=== PATIENT | male | born 1945 | race Caucasian/White ===

== ENCOUNTER 2018-04-30 22:48 | Emergency (ER) | payer OTHER ==
[~2018-04-30] VITALS: Ht 170.2 cm; Wt 80.1 kg
[2018-04-30 23:10] LABS: HEMATOCRIT 43.2 % (38.0-50.0); HEMOGLOBIN 14.8 G/DL (12.5-16.6); MCH 33.2 PG (29.0-34.0); MCHC 34.3 G/DL (30.0-36.0); MCV 96.9 FL (86-99); RBC DIS.WIDTH-CV 14.1 % (11.8-14.6); RBC DIS.WIDTH-SD 50.1 % (39-53); RED BLOOD COUNT 4.46 M/uL (4.00-5.50); WHITE BLOOD COUNT 10.7 K/uL (4.1-10.2)
[2018-04-30 23:25] LABS: CHLORIDE 106 mEq/L (99-109); POTASSIUM 3.8 mEq/L (3.7-5.4); SODIUM 140 mEq/L (136-147)
[2018-04-30 23:27] LABS: GLUCOSE 120 mg/dL (70-99)
[2018-04-30 23:31] LABS: CREATININE 1.3 mg/dL (0.6-1.3)
[2018-04-30 23:32] LABS: UREA NITROGEN (BUN) 15 mg/dL (9-23)
[2018-04-30 23:36] LABS: GFR ESTIMATE (CALCULATED) 57 mL/min/ (58.99-99999)
[2018-04-30 23:39] LABS: TROP-I INTERPRETATION NEGATIVE; TROPONIN-I < 0.01 ng/mL (0.0-0.30)
[2018-05-01 00:42] LABS: PLATELET COUNT 194 K/uL (156-360)
[2018-05-01] MEDS ORDERED: LEVAQUIN750 MG PO (01:14)
[2018-05-01] MEDS ORDERED: PREDNISONE20 MG PO (01:14)
[2018-05-01] MEDS ORDERED: AZITHROMYCIN250 MG1 PO (01:19)
[2018-05-01 02:26] VITALS: BP 136/77
== END 2018-05-01 02:36 | disposition home or self-care (01) ==
LOC: EME 22:48
DX: J18.9 Pneumonia, unspecified organism (principal); J44.1 Chronic obstructive pulmonary disease with (acute) exacerbation; M06.9 Rheumatoid arthritis, unspecified; Z79.82 Long term (current) use of aspirin; Z87.891 Personal history of nicotine dependence; R94.31 Abnormal electrocardiogram [ECG] [EKG]
CPT/HCPCS: 71046; 80048; 84484; 85027; 93005; 94640; 99281; 99284; J7512

== ENCOUNTER 2018-05-08 17:36 | Emergency (ER) | payer OTHER ==
[~2018-05-08] VITALS: Ht 170.2 cm; Wt 79.1 kg
[~2018-05-08 17:36] MED LIST: AZITHROMYCIN250 MG1 PO; LEVAQUIN750 MG PO; PREDNISONE20 MG PO
[2018-05-08 18:12] LABS: BASOPHIL (%) 0.5 % (0-1); BASOPHIL COUNT 0.1 K/uL (0-0.1); EOSINOPHIL (%) 7.2 % (0-5); EOSINOPHIL COUNT 0.8 K/uL (0-0.3); HEMATOCRIT 43.4 % (38.0-50.0); HEMOGLOBIN 14.9 G/DL (12.5-16.6); IMMATURE GRANULOCYTE (%) 0.4 % (0.0-0.7); LYMPHOCYTE (%) 23.9 % (15-42); LYMPHOCYTE COUNT 2.7 K/uL (1.0-2.8); MCH 32.6 PG (29.0-34.0); MCHC 34.3 G/DL (30.0-36.0); MONOCYTE (%) 8.2 % (3-12); MONOCYTE COUNT 0.9 K/uL (0-0.8); NEUTROPHIL (%) 59.8 % (45-76); NEUTROPHIL COUNT 6.8 K/uL (1.8-6.4); PLATELET COUNT 215 K/uL (156-360); RBC DIS.WIDTH-CV 13.7 % (11.8-14.6); RBC DIS.WIDTH-SD 47.9 % (39-53); RED BLOOD COUNT 4.57 M/uL (4.00-5.50); WHITE BLOOD COUNT 11.4 K/uL (4.1-10.2)
[2018-05-08 18:23] LABS: CHLORIDE 104 mEq/L (99-109); POTASSIUM 3.6 mEq/L (3.7-5.4); SODIUM 138 mEq/L (136-147)
[2018-05-08 18:24] LABS: GLUCOSE 133 mg/dL (70-99)
[2018-05-08 18:28] LABS: CREATININE 1.3 mg/dL (0.6-1.3); GFR ESTIMATE (CALCULATED) 57 mL/min/ (58.99-99999)
[2018-05-08 18:29] LABS: UREA NITROGEN (BUN) 12 mg/dL (9-23)
[2018-05-08 18:33] LABS: TROP-I INTERPRETATION NEGATIVE; TROPONIN-I < 0.01 ng/mL (0.0-0.30)
[2018-05-08 21:08] VITALS: BP 167/94
== END 2018-05-08 21:08 | disposition home or self-care (01) ==
LOC: EME 17:36
PROVIDERS: Emergency Medicine
DX: R91.8 Other nonspecific abnormal finding of lung field (principal); J90 Pleural effusion, not elsewhere classified; R94.31 Abnormal electrocardiogram [ECG] [EKG]; J44.9 Chronic obstructive pulmonary disease, unspecified; M19.90 Unspecified osteoarthritis, unspecified site; Z87.891 Personal history of nicotine dependence; Z87.01 Personal history of pneumonia (recurrent)
CPT/HCPCS: 71046; 71250; 80048; 83605; 84484; 85025; 87040; 93005; 94640; 99281; 99285